=== PATIENT | female | born 1975 | race Caucasian/White ===

== ENCOUNTER 2019-07-26 07:21 | Outpatient (CLI) | payer OTHER, SELFPAY ==
--- NOTE | ~2019-07-26 | US_ITS ---
EXAMINATION: US thyroid EXAM DATE: 07/26/2019 07:53 INDICATION: Goiter. TECHNIQUE: Multiple grayscale and Doppler images of the thyroid were obtained (by a technologist who performed the scan) and subsequently reviewed. There is no prior study for comparison. FINDINGS: Right thyroid lobe measures 3.2 x 1.4 x 1.3 cm, the left measuring 4.3 x 1.5 x 1.5 cm. Thyroid has re latively homogeneous echogenicity at expected amount of vascularity. There are no focal nodules ident ified. IMPRESSION: 1. Unremarkable ultrasound exam. Reviewed, dictated and finalized at location A.
== END 2019-07-26 07:22 | disposition home or self-care (01) ==
LOC: ANHIMG 07:24
PROVIDERS: PCP Nurse Practitioner Family; Visit Provider Internal Medicine Endocrinology, Diabetes & Metabolism
DX: E04.9 Nontoxic goiter, unspecified (principal)
CPT/HCPCS: 76536

== ENCOUNTER → 2020-08-14 07:41 | Outpatient (CLI) | payer OTHER, SELFPAY ==
--- NOTE | ~2020-08-14 | MR_ITS ---
EXAMINATION: MR knee LT wo con DATE: 08/14/2020 08:29 INDICATION: Left knee pain. TECHNIQUE: Magnetic resonance imaging (MRI) of the left knee was performed without intravenous contra st. Sequences included axial PD-weighted FS FSE, coronal PD-weighted FSE and PD-weighted FS FSE, sagi ttal PD-weighted FSE, and sagittal T2-weighted FS FSE. COMPARISON: None. FINDINGS: Medial compartment: Medial meniscus is normal. There is shallow partial-thickness cartilage loss of femoral condyle later ally. Tibial cartilage is normal. Lateral compartment: Lateral meniscus is normal. Lateral compartment cartilage is normal. Patellofemoral compartment: There is deep partial thickness cartilage loss of patellar medial facet and shallow partial-thickness cartilage loss of patellar lateral facet. Trochlear cartilage is normal. Ligaments and tendons: Anterior and posterior cruciate ligaments are normal. Medial collateral ligament and lateral collater al ligament complex are normal. The patellar tendon is normal. Fluid: There is a small knee joint effusion. There is trace fluid in a Emery's cyst. There is mild prepatell ar and superficial infrapatellar bursitis. IMPRESSION: 1. Moderate chondrosis of patellofemoral compartment and mild chondrosis of medial compartment. 2. Small knee joint effusion. Reviewed, dictated and finalized at location A. IMPRESSION: 1. Moderate chondrosis of patellofemoral compartment and mild chondrosis of med ial compartment. 2. Small knee joint effusion.
== END ==
PROVIDERS: PCP Nurse Practitioner Family
DX: M22.42 Chondromalacia patellae, left knee (principal); M76.52 Patellar tendinitis, left knee; M25.462 Effusion, left knee
CPT/HCPCS: 73721